=== PATIENT | female | born 2000 | race Caucasian/White ===

== ENCOUNTER 2023-01-04 20:09 | Emergency (ER) | payer BC, OTHER ==
[2023-01-04] MEDS ORDERED: Proparacaine 0.5% Opth 15 ML BOT ONE (20:32)
[2023-01-04] MEDS ORDERED: Fluorescein Opthalmic Strip ONE ×2 (20:32→20:34)
[2023-01-04] MEDS ORDERED: Boostrix 0.5 ML (Tdap) VIAL (>/=7 yrs of age) ONE (20:34)
== END 2023-01-04 21:40 | disposition home or self-care (01) ==
LOC: ERS 20:09
DX: T15.02XA Foreign body in cornea, left eye, initial encounter (principal); X58.XXXA Exposure to other specified factors, initial encounter; Y93.89 Activity, other specified; Z23 Encounter for immunization
CPT/HCPCS: 90471; 90715; 99283

== ENCOUNTER 2024-08-20 15:13 | Outpatient (CLI) | payer BC | END 2024-08-20 15:14 | disposition home or self-care (01) | LOC: ULT 15:13 | DX: R10.2 Pelvic and perineal pain (principal) | CPT/HCPCS: 76856 ==